=== PATIENT | male | born 1970 | race Caucasian/White ===

== ENCOUNTER 2017-11-13 17:00 | Emergency (ER) | payer BC ==
[~2017-11-13] VITALS: Ht 167.6 cm; Wt 76.5 kg
[2017-11-13 17:18] VITALS: BP 158/93; PULSE 95; RESP 18; TEMP 98.5; O2SAT 97
--- NOTE | 2017-11-13 18:12 | PD ---
HPI Chief Complaint: Injury Time Seen by Provider: 18:11 Travel History International Travel<30 days: No Contact w/Intl Traveler<30days: No Traveled to known affect area: No History of Present Illness HPI 47-year-old male presents emergency department for evaluation of right hand pain. Patient states 1 week ago, he twisted his hand and thought it was sprain. He states it has been painful since. It has become more swollen. He reports pain mostly on the dorsum of the hand. He can make a fist however this hurts. Denies any alterations in sensation. No limitations in range of motion except for that it is painful. He did go to urgent care and states he had a hand x-ray done today and was told his hand was fractured. Patient has no other symptoms to report at this time. FORMERLY [facility] Past Medical History Medical History: Denies Significant Hx Social History Alcohol Use: Yes Tobacco Use: Yes Substance Use: Yes Allergies-Medications (Allergen,Severity, Reaction): Coded Allergies: No Known Allergies (Unverified , 11/13/17) Reported Meds & Prescriptions Reported Meds & Active Scripts Active No Active Prescriptions or Reported Medications Review of Systems Except as stated in HPI: all other systems reviewed are Neg Physical Exam Narrative GENERAL: Well-nourished, well-developed male patient in no acute distress SKIN: Focused skin assessment warm/dry. HEAD: Normocephalic. EYES: No scleral icterus. No injection or drainage. NECK: Supple, trachea midline. No JVD or lymphadenopathy. CARDIOVASCULAR: Regular rate and rhythm without murmurs, gallops, or rubs. RESPIRATORY: Breath sounds equal bilaterally. No accessory muscle use. MUSCULOSKELETAL: No cyanosis. Mild edema of the dorsum of the right hand. Patient has no obvious deformity. 4 out of 5 [employer] strength right upper extremity. There is a deformity of the left hand, this is chronic. Cap refills within normal limits. Distal pulses are palpable. Data Data Last Documented VS Vital Signs Date Time Temp Pulse Resp B/P (MAP) Pulse Ox O2 Delivery O2 Flow Rate FiO2 11/13/17 17:18 98.5 95 18 158/93 (114) 97 Orders Orders Hand, Complete ([id number]) (11/13/17 ) Splinting (11/13/17 ) Splint Or Brace Apply/Monitor (11/13/17 18:58) [facility] Medical Decision Making Medical Screen Exam Complete: Yes Emergency Medical Condition: Yes Medical Record Reviewed: Yes Differential Diagnosis Fracture versus sprain versus contusion versus dislocation Narrative Course 47-year-old male presents emergency department for evaluation of right hand pain times 1 week. Patient went to urgent care and was told that his hand was broken. He presents today mildly swollen dorsal right hand. No deformity. X- ray imaging is ordered. Last Impressions Hand X-Ray 11/13/17 0000 Signed Impressions: CONCLUSION: Right fourth metacarpal fracture, mildly displaced. Patient will be placed in a splint. He is counseled on care. He is encouraged to follow-up with primary care provider and return immediately with acute worsening symptoms. Diagnosis Primary Impression: Hand fracture, right Qualified Codes: S62.91XA - Unspecified fracture of right wrist and hand, initial encounter for closed fracture Referrals: Hand Surgeon Primary Care Physician Patient Instructions: General Instructions, Hand Fracture (ED) Additional Instructions: Elevate to reduce pain and swelling Follow-up with a primary care provider Seek hand specialist evaluation Do not remove your splint Do not get it wet Return immediately with acute worsening symptoms Med/Other Pt SpecificInfo: Prescription(s) given Scripts Ibuprofen (Ibuprofen) 600 Mg Tab 600 MG PO Q8H Y for PAIN, #30 TAB 0 Refills Prov: Jennifer Truong 11/13/17 Disposition: 01 DISCHARGE HOME Condition: Stable Jennifer Truong Nov 13, 2017 18:12
--- NOTE | 2017-11-13 18:56 | RADRPT ---
EXAM DATE: 11/13/2017 6:26 PM EDT AGE/SEX: 47 years / Male INDICATIONS: Right hand pain and swelling, injured picking up heavy object CLINICAL DATA: This is the patient's initial encounter. Patient reports that signs and symptoms have been present for 1 week and indicates a pain score of 8/10. MEDICAL/SURGICAL HISTORY: None. None. COMPARISON: No prior exams available for comparison. FINDINGS: Obliquely oriented fracture fourth metacarpal shaft. No dislocation. No other fractures are seen. CONCLUSION: Right fourth metacarpal fracture, mildly displaced. Electronically signed by: Shahzad Canchola MD 11/13/2017 6:55 PM EDT
[2017-11-13] MEDS ORDERED: IBUP-232 PO (19:01)
== END 2017-11-13 20:25 | disposition home or self-care (01) ==
LOC: NEPC 17:00
DX: S62.324A Displaced fracture of shaft of fourth metacarpal bone, right hand, initial encounter for closed fracture (principal); Z72.0 Tobacco use; X58.XXXA Exposure to other specified factors, initial encounter
CPT/HCPCS: 29125; 73130